=== PATIENT | female | born 1950 | race Caucasian/White ===

== ENCOUNTER 2018-03-10 10:05 | Emergency (ER) | payer MEDICARE, SELFPAY ==
--- NOTE | 2018-03-10 10:09 | DI.RAD.S_ITS ---
PROCEDURE: XR ANKLE LT MIN 3V INDICATIONS: injury TECHNIQUE: 3 views of the ankle were acquired. COMPARISON: None. FINDINGS: Bones: There is an osseous density superior to the anterior aspect of talus. Ankle mortise is normally aligned. No suspicious bony lesions. There is cortical irregularity and periosteal reaction in the lateral aspect of distal tibia and medial aspect of the distal fibula is noted. Soft tissues: Small tibiotalar joint effusion. Achilles tendon appears normal. Marked soft tissue swelling just below the lateral malleolus. IMPRESSION: 1. An osseous density superior to the anterior aspect of talus, suspicious for an avulsion fracture. 2. Marked soft tissue swelling just below the lateral malleolus. 3. Small tibiotalar joint effusion. 4. Cortical irregularity and benign-appearing periosteal reaction in the lateral aspect of distal tibia and medial aspect of the distal fibula is noted, likely sequelae of old injury. Dictated by: Ne Ng M.D. on 03/10/2018 at 10:39 Approved by: Ne Ng M.D. on 03/10/2018 at 10:47
[2018-03-10 10:11] VITALS: BP 119/67; PULSE 55; RESP 14; TEMP 36.4; O2SAT 98; BMI 22.8
--- NOTE | 2018-03-10 12:26 | ED_ITS ---
HPI - Extremity Injury (Lower) <BRYANNA Nj - Last Filed: 03/10/18 22:01> General Chief Complaint: Extremity Injury, Lower Stated Complaint: THINKS BROKE LEFT ANKLE Time Seen by Provider: 03/10/18 12:10 Source: patient Mode of arrival: other (Crutches) History of Present Illness HPI Narrative: 59-year-old female here for complaint of pain and swelling to her left ankle since last night. She states that she was going up steps when she was stepped backwards on the step causing her to slip causing her foot to come down on the next step. Increasing pain with ambulation. He reports he is having bruising to that area now. She denies any other injuries. She did not hit her head. No loss of consciousness. No other concerns or complaints at this time. MD complaint: ankle injury Onset (ago): day(s) Related Data Home Medications Medication Instructions Recorded Confirmed alprazolam 1 tab PO TID PRN 03/10/18 03/10/18 levothyroxine [Synthroid] 1 tab PO DAILY 03/10/18 03/10/18 paroxetine HCl 10 mg PO DAILY 03/10/18 03/10/18 pravastatin 10 mg PO DAILY 03/10/18 03/10/18 trazodone 50 mg PO DAILY 03/10/18 03/10/18 Allergies Allergy/AdvReac Type Severity Reaction Status Date / Time aspirin [From PERCODAN] Allergy Unknown Verified 03/10/18 10:11 morphine [MORPHINE] Allergy Unknown Verified 03/10/18 10:11 hydrocodone [HYDROCODONE] AdvReac Mild ITCHING Verified 03/10/18 10:11 oxycodone [OXYCODONE] AdvReac Mild ITCHING Verified 03/10/18 10:11 Review of Systems <BRYANNA Nj - Last Filed: 03/10/18 22:01> Constitutional Denies chills, Denies fever(s), Denies lethargy and Denies weakness Eyes Denies change in vision, Denies eye discharge, Denies irritation and Denies loss of vision Cardiovascular Denies chest pain, Denies irregular heart rhythm, Denies lightheadedness, Denies palpitations, Denies dyspnea, Denies dyspnea on exertion and Denies orthopnea Respiratory Denies cough, Denies dyspnea, Denies dyspnea on exertion and Denies wheezing Gastrointestinal Gastrointestinal: Denies abdominal pain, Denies change in bowel habits, Denies diarrhea, Denies nausea and Denies vomiting Genitourinary Denies hematuria, Denies flank pain, Denies urinary incontinence and Denies urinary urgency Musculoskeletal Comments: Left ankle pain and swelling Integumentary/Breasts Denies pruritus, Denies erythema, Denies rash and Denies wounds Neurologic Denies confusion, Denies loss of vision and Denies weakness Psychiatric Denies anxiety, Denies confusion, Denies depression, Denies homicidal ideation and Denies suicidal ideation Endocrine Denies palpitations Hematologic/Lymphatic Denies easy bruising Allergic/Immunologic Denies wheezing Exam <BRYANNA Nj - Last Filed: 03/10/18 22:01> Initial Vital Signs Initial Vital Signs: Vital Signs Temperature 97.5 F L 03/10/18 10:11 Pulse Rate 55 L 03/10/18 10:11 Respiratory Rate 14 03/10/18 10:11 Blood Pressure 119/67 03/10/18 10:11 Pulse Oximetry 98 03/10/18 10:11 Const General: cooperative and well developed Nutritional Appearance: well nourished Orientation: alert, awake, oriented x3 and not confused [facility] Mouth: oral mucosae normal and moist mucous membranes Eyes Conjunctivae: conjunctivae normal Sclera: sclerae normal Pupils: PERRL EOM: EOM intact bilaterally Resp Effort & Inspection: normal respiratory effort, able to speak in complete sentences, no respiratory distress and no use of accessory muscles Auscultation: clear to auscultation bilaterally, no rales, no rhonchi and no wheezes Cardio Rate: regular rate Rhythm: regular rhythm Heart Sounds: no click, no gallops, no murmurs and no rubs Pulses: normal peripheral pulses Skin General: no rashes or lesions noted, No jaundice and No petechiae Neuro General: alert, oriented x3, gait normal and no focal motor deficits Speech: speech normal Extrem Other: Swelling and ecchymosis to the left ankle and proximal dorsal aspect of the left foot. No skin breaks. No deformities. Distal sensation is intact. Distal range of motion is intact. Distal pulses are intact <Maverick Bernardo MD - Last Filed: 03/13/18 08:34> Initial Vital Signs Initial Vital Signs: Vital Signs Temperature 97.5 F L 03/10/18 10:11 Pulse Rate 55 L 03/10/18 10:11 Respiratory Rate 14 03/10/18 10:11 Blood Pressure 119/67 03/10/18 10:11 Pulse Oximetry 98 03/10/18 10:11 Procedures <BRYANNA Nj - Last Filed: 03/10/18 22:01> Orthopedic Splinting/Casting Injury #1: Side: left Lower Extremity Injury Location: ankle Lower Extremity Immobilizer: posterior splint and stirrup splint Other Orthopedic Equipment: crutches Additional Comments: Distal CMS is intact after splint applied Course <BRYANNA Nj - Last Filed: 03/10/18 22:01> Orders Ordered: Discontinued Medications Ibuprofen (Advil) 800 mg PO NOW ONE Stop: 03/10/18 12:19 Last Admin: 03/10/18 12:56 Dose: 800 mg Vital Signs - 8 hr 03/10/18 10:11 Temperature 97.5 F L Pulse Rate 55 L Respiratory Rate 14 Blood Pressure 119/67 Pulse Oximetry 98 <Maverick Bernardo MD - Last Filed: 03/13/18 08:34> Orders Ordered: Discontinued Medications Ibuprofen (Advil) 800 mg PO NOW ONE Stop: 03/10/18 12:19 Last Admin: 03/10/18 12:56 Dose: 800 mg Vital Signs - 8 hr 03/10/18 10:11 Temperature 97.5 F L Pulse Rate 55 L Respiratory Rate 14 Blood Pressure 119/67 Pulse Oximetry 98 MDM - Extremity Injury (Lower) <BRYANNA Nj - Last Filed: 03/10/18 22:01> Imaging Data ankle: Radiologist's impression: PROCEDURE: XR ANKLE LT MIN 3V INDICATIONS: injury TECHNIQUE: 3 views of the ankle were acquired. COMPARISON: None. FINDINGS: Bones: There is an osseous density superior to the anterior aspect of talus. Ankle mortise is normally aligned. No suspicious bony lesions. There is cortical irregularity and periosteal reaction in the lateral aspect of distal tibia and medial aspect of the distal fibula is noted. Soft tissues: Small tibiotalar joint effusion. Achilles tendon appears normal. Marked soft tissue swelling just below the lateral malleolus. IMPRESSION: 1. An osseous density superior to the anterior aspect of talus, suspicious for an avulsion fracture. 2. Marked soft tissue swelling just below the lateral malleolus. 3. Small tibiotalar joint effusion. 4. Cortical irregularity and benign-appearing periosteal reaction in the lateral aspect of distal tibia and medial aspect of the distal fibula is noted, likely sequelae of old injury. Dictated by: Ne Ng M.D. on 03/10/2018 at 10:39 Approved by: Ne Ng M.D. on 03/10/2018 at 10:47 [facility] Narrative Medical decision making narrative: X-ray of the left ankle was obtained and shows density to superior distal aspect of the talus suspicious for avulsion fracture. She is placed in a posterior/stirrup splint for comfort and support. She is issued crutches for nonweightbearing. Follow up with Orthopedics. Call the number at number provided to schedule follow-up appointment in the next few days. [id number] Tylenol and/or Motrin as needed for any discomfort. Ice and elevation to help with swelling. For any worsening symptoms return to the emergency room. Discharge Plan Departure Patient Disposition: Home, Self-Care Clinical Impression: Avulsion fracture of left talus Discharge Date/Time: 03/10/18 13:16 Interventions: ED Discharge Assessment Last Done: 03/10/18 13:12 Instructions: DI for Ankle Fracture Activity Restrictions/Additional Instructions: X-ray shows a bony density to the superior distal aspect of the left talus suspicious for avulsion fracture. You have been placed in a splint for comfort and support use as directed. Use crutches for nonweightbearing as directed. [id number] Tylenol and/or Motrin as needed for discomfort. Ice and elevation 20 min at a time several times a day for the next several days to help with swelling. Follow up with Orthopedics called their number at number provided to schedule follow-up appointment in the next few days. For any worsening symptoms return to the emergency room. Prescriptions: No Action paroxetine HCl 10 mg tablet 10 mg PO DAILY RF: 0 trazodone 50 mg tablet 50 mg PO DAILY RF: 0 levothyroxine [Synthroid] 100 mcg tablet 1 tab PO DAILY RF: 0 alprazolam 0.5 mg tablet 1 tab PO TID PRN (Reason: Anxiety) RF: 0 pravastatin 10 mg tablet 10 mg PO DAILY RF: 0 Referrals: Trey Humphreys MD [Physician] - <Maverick Bernardo MD - Last Filed: 03/13/18 08:34> Sign Out Provider Sign Out Attestation: The PA/BOILER REPAIR SUPERVISOR functioned independently for the care of this pt, I was available, but not asked to participate in care. I am unable to determine appropriateness of management without personally examining the pt.
[2018-03-10] MEDS: IBUPROFEN 400 MG TABLET 800 MG PO (12:56)
--- NOTE | 2018-03-10 12:59 | PC.NURSE ---
Pt has own crutches and knows the proper use of crutches
[2018-03-10 13:01] VITALS: BP 127/72; PULSE 51; RESP 16; TEMP 36.4; O2SAT 99
== END 2018-03-10 13:16 | disposition home or self-care (01) ==
PROVIDERS: Emergency Provider Nurse Practitioner Family
DX: S92.152A Displaced avulsion fracture (chip fracture) of left talus, initial encounter for closed fracture (principal); W10.8XXA Fall (on) (from) other stairs and steps, initial encounter
CPT/HCPCS: 29515; 73610; 99282; 99283